=== PATIENT | female | born 1940 | race Caucasian/White ===

== ENCOUNTER 2020-06-16 10:14 | Emergency (ER) | payer MEDICARE ==
[~2020-06-16] VITALS: Ht 167.6 cm; Wt 59.9 kg
--- NOTE | 2020-06-16 10:30 | NUR ---
Dr. Hayes at bedside for MSE
[2020-06-16] MEDS ORDERED: ONDANSETRON 4 MG/2 ML VIAL IV ONE (11:00)
[2020-06-16] MEDS ORDERED: PIPERACILLIN SODIUM/TAZOBACTAM 3.375 G in IV DEXTROSE 5% 50 ML IV ONE (11:00)
[2020-06-16] MEDS ORDERED: MORPHINE SULFATE 2 MG/1 ML DISP.SYRIN IV ONE (11:00)
[2020-06-16] MEDS ORDERED: IV NORMAL SALINE 1000 ML BAG IV ONE (11:00)
[2020-06-16] MEDS ORDERED: VANCOMYCIN IV 1,000 MG in IV DEXTROSE 5% 250 ML IV ONE (11:00)
[2020-06-16] MEDS ORDERED: NETA2.5D OP (11:01)
[2020-06-16] MEDS ORDERED: BIOT25008 PO (11:01)
[2020-06-16] MEDS ORDERED: MECL-159 PO (11:02)
[2020-06-16] MEDS ORDERED: BIMA2.5D5 EACHEYE (11:02)
[2020-06-16] MEDS ORDERED: ACET325C7 PO (11:02)
[2020-06-16] MEDS ORDERED: TRAV5DRO OP (11:02)
[2020-06-16] MEDS ORDERED: TIMO5DRO35 RIGHTEYE (11:02)
[2020-06-16] MEDS ORDERED: SIMV-46 PO (11:02)
[2020-06-16] MEDS ORDERED: BRIN8DRO RIGHTEYE (11:02)
[2020-06-16] MEDS ORDERED: CHOL10002 PO (11:02)
[2020-06-16] MEDS ORDERED: ESTRACE VG (11:02)
[2020-06-16] MEDS ORDERED: MELO7.5T12 PO (11:02)
[2020-06-16] MEDS ORDERED: CALC-343 PO (11:02)
[2020-06-16] MEDS ORDERED: MELA5TAB PO (11:02)
[2020-06-16] MEDS ORDERED: MAGN400C PO (11:02)
[2020-06-16] MEDS ORDERED: VIT1CAPS44 PO (11:02)
[2020-06-16] MEDS ORDERED: DIPH25CA83 PO (11:02)
[2020-06-16] MEDS ORDERED: MIRA50TA PO (11:03)
[2020-06-16] MEDS ORDERED: MORPHINE SULFATE 2 MG/1 ML DISP.SYRIN ONE (11:04)
[2020-06-16] MEDS ORDERED: PIPERACILLIN/TAZOBACTAM/D5W 50 ML IV ONE (11:04)
[2020-06-16] MEDS ORDERED: ONDANSETRON 4 MG/2 ML VIAL ONE (11:04)
[2020-06-16] MEDS ORDERED: VANCOMYCIN IV 200 ML ONE (11:05)
[2020-06-16] MEDS ORDERED: SWABABLE VALVE TRANSFER SET EA MC ONE (11:07)
[2020-06-16] MEDS ORDERED: IOHEXOL 300MG/ML 100 ML INFUS..BTL ONE (11:08)
[2020-06-16] MEDS ORDERED: IV NORMAL SALINE 250 ML IV ONE (11:08)
[2020-06-16 11:09] LABS: BASOPHILS % (AUTO) 0.2 % (0.0-2.0); HEMATOCRIT 39.3 % (31.2-41.9); HEMOGLOBIN 12.7 g/dL (10.9-14.3); LYMPHOCYTES # (AUTO) 5.2 K/uL (20.0-40.0); LYMPHOCYTES % (AUTO) 28.4 % (20.5-51.5); MEAN CORPUSCULAR HEMOGLOBIN 30.2 uug (24.7-32.8); MEAN CORPUSCULAR HGB CONC 32 g/dL (32.3-35.6); MEAN CORPUSCULAR VOLUME 93.6 fL (75.5-95.3); MONOCYTES % (AUTO) 5.5 % (0.0-11.0); NEUTROPHILS # (AUTO) 12.1 K/uL (1.8-8.9); NEUTROPHILS % (AUTO) 65.9 % (38.5-71.5); PLATELET COUNT (AUTO) 245 K/uL (179-408); RED BLOOD CELL COUNT(AUTO) 4.19 MIL/uL (3.63-4.92); WHITE BLOOD COUNT (AUTO) 18.4 K/uL (3.8-11.8)
[2020-06-16 11:21] LABS: BILIRUBIN,DIRECT 0.2 mg/dL (0.0-0.2); BILIRUBIN,TOTAL 0.8 mg/dL (0.2-1.0); CREATININE 1.2 mg/dL (0.6-1.3); POTASSIUM 4.2 mmol/L (3.5-5.1); TOTAL PROTEIN, SERUM 7.4 g/dL (6.4-8.2)
[2020-06-16] MEDS ORDERED: IV NORMAL SALINE 500 ML BAG IV ONE ×2 (11:45→13:00)
--- NOTE | 2020-06-16 12:00 | NUR ---
Patient back from CT scan, patient noted tachypneic, and confused. Dr. Hayes aware. new orders received
[2020-06-16] MEDS ORDERED: diphenhydrAMINE 50 MG/1 ML VIAL ONE (12:12)
[2020-06-16] MEDS ORDERED: FAMOTIDINE. 20 MG/2 ML VIAL IV ONE ×2 (12:14→12:15)
[2020-06-16] MEDS ORDERED: methylPREDNISolone SOD SUCC 125 MG/2 ML VIAL ONE (12:14)
[2020-06-16] MEDS ORDERED: methylPREDNISolone SOD SUCC 125 MG/2 ML VIAL IV ONE (12:15)
[2020-06-16] MEDS ORDERED: ACETAMINOPHEN ES 500 MG TABLET PO ONE (12:15)
[2020-06-16] MEDS ORDERED: diphenhydrAMINE 50 MG/1 ML VIAL IV ONE (12:15)
[2020-06-16] MEDS ORDERED: ACETAMINOPHEN ES 500 MG TABLET ONE (13:10)
--- NOTE | 2020-06-16 13:45 | NUR ---
Patient able to ambulate from bed to bedside commode with assistance. able to urinate without difficulty
--- NOTE | 2020-06-16 13:50 | NUR ---
Patient noted A&O x4. breathing even and unlabored. denies any pain or discomfor at this time
[2020-06-16 14:12] LABS: *BILIRUBIN,URIN NEGATIVE (NEGATIVE); *BLOOD, URINE 1+ (NEGATIVE); *CLARITY,URINE CLEAR (CLEAR); *COLOR,URINE YELLOW (YELLOW); *KETONES,URINE NEGATIVE (NEGATIVE); *UROBILINOGEN,URINE 0.2 E.U./dl (NORMAL); LEUKOCYTE ESTERASE ,URINE NEGATIVE (NEGATIVE); NITRITE, URINE POSITIVE (NEGATIVE); UGLUCOSE NEGATIVE (NEGATIVE)
--- NOTE | 2020-06-16 15:19 | NUR ---
Dr. Hayes speaking with [facility]
[2020-06-16 15:48] LABS: URINE AMORPHOUS URATE ABSENT /HPF
[2020-06-16 16:41] LABS: WBC,URINE 0-3 /HPF (0-3)
[2020-06-16 16:42] LABS: BACTERIA,URINE NONE SEEN /HPF (NONE SEEN); SQUAMOUS EPITHELIAL CELL,UR FEW /HPF (NONE SEEN)
--- NOTE | 2020-06-16 17:01 | NUR ---
FAXED CLINICALS OVER TO [phone]
--- NOTE | 2020-06-16 18:30 | NUR ---
IV removed. Catheter intact and site benign. Pressure and 4x4 gauze applied to site. No bleeding noted. Patient does not wish to proceed with medical care recommended by Dr. Hayes. Patient given information related to possible complications, up to and including , which could occur as a result of leaving the hospital at this time. Patient verbalizes understanding of risks involved due to leaving against medical advice. Patient has signed AMA form. Patient ambulated with steady gait. NAD noted
[2020-06-16 18:37] VITALS: BP 141/72
== END 2020-06-16 18:30 | disposition left against medical advice (07) ==
LOC: ER 10:14
DX: A41.9 Sepsis, unspecified organism (principal); K11.3 Abscess of salivary gland; L03.211 Cellulitis of face; L02.01 Cutaneous abscess of face; R65.20 Severe sepsis without septic shock; N17.9 Acute kidney failure, unspecified; E87.1 Hypo-osmolality and hyponatremia; R00.0 Tachycardia, unspecified; F41.9 Anxiety disorder, unspecified; R06.82 Tachypnea, not elsewhere classified; I45.10 Unspecified right bundle-branch block; Z79.899 Other long term (current) drug therapy; H40.9 Unspecified glaucoma; C91.10 Chronic lymphocytic leukemia of B-cell type not having achieved remission
CPT/HCPCS: 36415; 70487; 70491; 71045; 80048; 80076; 81001; 83605; 83880; 84484; 85025; 85730; 87040 ×2; 87086; 87426; 93005; 96361; 96365; 96366; 96367; 96375; 99291; 99292; G0480; J1200; J2543; J2930; J3370; J3490; Q9967; 70030-TC; A4663; A9150; J2270; J2405; J7030; J7040; J7050